=== PATIENT | female | born 1975 | race Caucasian/White ===

== ENCOUNTER 2016-08-23 14:27 | Emergency (ER) | payer OTHER ==
[~2016-08-23] VITALS: Ht 172.7 cm; Wt 113.4 kg
[~2016-08-23 14:27] MED LIST: CHEL50TA PO; DIGO0.25 PO; DOCU10CA PO; EFFE75CA75 PO; ELIQ5TAB PO; FLEC50TA PO; MAGN400C2 PO; MOTR200T44 PO; MULTCAP PO; PERC5TAB6 PO; VICODIN 7.5/500 PO; VITA500C24 PO; XANA0.5T PO; ZINCLOZ9 PO
[2016-08-23] MEDS ORDERED: ZYRT10CA PO (14:40)
[2016-08-23] MEDS ORDERED: EFFE150C PO (14:40)
[2016-08-23] MEDS ORDERED: TRAM50TA2 PO (14:40)
[2016-08-23] MEDS ORDERED: ATIV1TAB10 PO (14:40)
[2016-08-23] MEDS ORDERED: TIZA4CAP3 PO (14:40)
[2016-08-23] MEDS ORDERED: VITATAB21 PO (14:40)
[2016-08-23] MEDS ORDERED: TYLE500T78 PO (14:40)
[2016-08-23] MEDS ORDERED: MORPHINE 4 MG/ML 1ML SYRINGE IV ONE ×2 (15:00→17:15)
[2016-08-23] MEDS ORDERED: PANTOPRAZOLE 40MG INJ (PROTONIX) (C9113) IV ONE (15:00)
[2016-08-23] MEDS ORDERED: NS 1,000 ML IV ONE (15:00)
[2016-08-23 15:42] LABS: BASO % 0.5 % (0.0-1.0); EOS # 0.2 K/mm3 (0.0-0.50); EOS % 1.7 % (0.0-3.0); LARGE UNSTAINED CELL # 0.2 K/mm3 (0.0-0.4); LARGE UNSTAINED CELL % 1.7 % (0.0-4.0); LYMPH # 2.3 K/mm3 (1.5-4.5); LYMPH % 23.3 % (24.0-44.0); MEAN CORPUSCULAR HEMOGLOBIN 31.5 pg (27.0-33.0); MEAN CORPUSCULAR HGB CONC 32.9 g/dl (32.0-36.5); MEAN CORPUSCULAR VOLUME 95.8 fl (80.0-96.0); MONO # 0.6 K/mm3 (0.0-0.8); MONO % 5.6 % (0.0-5.0); NEUTROPHILS # 6.8 K/mm3 (1.8-7.7); NEUTROPHILS % 67.3 % (36.0-66.0); PLATELET COUNT, AUTOMATED 409 k/mm3 (150-450); WHITE BLOOD COUNT 10.1 K/mm3 (4.0-10.0)
[2016-08-23 16:09] LABS: ALBUMIN 3.6 GM/DL (3.2-5.2); ALBUMIN/GLOBULIN RATIO 0.95 (1.00-1.93); ALKALINE PHOSPHATASE 98 U/L (45-117); ALT/SGPT 26 U/L (12-78); AMYLASE 25 U/L (25-115); ANION GAP 5 MEQ/L (8-16); AST/SGOT 38 U/L (15-37); BILIRUBIN,DIRECT < 0.1 MG/DL (0.0-0.2); BILIRUBIN,TOTAL 0.3 MG/DL (0.2-1.0); BLOOD UREA NITROGEN 21 MG/DL (7-18); CALCIUM LEVEL 8.7 MG/DL (8.5-10.1); CARBON DIOXIDE LEVEL 28 MEQ/L (21-32); CHLORIDE LEVEL 104 MEQ/L (98-107); CREATININE FOR GFR 0.57 MG/DL (0.55-1.02); GLOMERULAR FILTRATION RATE > 60.0 (>60); GLUCOSE, FASTING 92 MG/DL (70-105); POTASSIUM SERUM 4.4 MEQ/L (3.5-5.1); SODIUM LEVEL 137 MEQ/L (136-145); TOTAL PROTEIN 7.4 GM/DL (6.4-8.2)
[2016-08-23] MEDS ORDERED: GI COCKTAIL 50ML BTL(HYOSCYAMINE/MAALOX/LIDOCAINE VISCOUS)(1:3:1) PO ONE (16:30)
--- NOTE | 2016-08-23 17:07 | REP ---
ABDOMEN FLAT UPRIGHT PA CHEST, THREE VIEWS: HISTORY: Epigastric pain. Air is present in the small and large intestine. There are no air fluid level or dilated loops of intestine. There is no pneumoperitoneum. Surgical clips are present in the right upper quadrant. The lungs are clear. IMPRESSION: Nonspecific bowel gas pattern. Signed by Romeo Stone MD 08/23/2016 05:11 P
--- NOTE | 2016-08-23 17:14 | REP ---
ABDOMINAL ULTRASOUND: REASON FOR EXAM: Epigastric and right upper quadrant pain. COMPARISON EXAMINATION: None. The patient is status-post cholecystectomy. Multiple sonographic images of the liver show diffuse increased echoes throughout the hepatic parenchyma. There is no intrahepatic or extrahepatic ductal dilatation. The common bile duct measures between 7-8 mm, dilated mildly likely secondary to the postcholecystectomy state. The maximal dimension of the liver is 20 cm. The imaged portion of the pancreas and right kidney are unremarkable. IMPRESSION: 1. There is diffuse fatty infiltration of the liver and evidence of hepatomegaly. 2. Common bile duct upper limits of normal probably secondary to the patient's postcholecystectomy state, correlate clinically. Signed by Malachi Chairez DO 08/28/2016 02:51 P
[2016-08-23] MEDS ORDERED: ISOVUE-370 76% 100ML VIAL (Q9967) As Ordered ONE (17:29)
--- NOTE | 2016-08-23 18:23 | REP ---
CT ABDOMEN AND PELVIS WITH CONTRAST: HISTORY: Abdominal pain. CONTRAST: Isovue-370 100 mL. The patient is status-post cholecystectomy. The liver, pancreas, spleen, adrenal glands and kidneys are normal in appearance. There is no mass, adenopathy or free fluid. The visualized lungs are clear. IMPRESSION: The patient is status-post cholecystectomy. CT PELVIS:The urinary bladder and uterus are normal in appearance. A 4.3 cm cyst is present in the right adnexa. There is no adenopathy or free fluid. IMPRESSION: There is a 4.2 cm right adnexal cyst. Ultrasound of the pelvis may be helpful for further evaluation. Signed by Romeo Stone MD 08/23/2016 07:16 P
[2016-08-23] MEDS ORDERED: SUCR1TA PO (18:40)
[2016-08-23] MEDS ORDERED: OMEP40CA2 PO (18:40)
[2016-08-23] MEDS ORDERED: SIME180C PO (18:40)
[2016-08-23 18:45] VITALS: BP 165/84
--- NOTE | 2016-08-25 14:25 | ED PDOC ---
Post-Departure Follow-Up dr gabrielle arias faxed formal report of ct abd/p for fu Catia Smith MD Aug 25, 2016 14:25
== END 2016-08-23 18:52 | disposition home or self-care (01) ==
LOC: M ED 15:23
DX: R10.13 Epigastric pain (principal); N83.8 Other noninflammatory disorders of ovary, fallopian tube and broad ligament; K76.9 Liver disease, unspecified; Z79.899 Other long term (current) drug therapy; Z88.8 Allergy status to other drugs, medicaments and biological substances; Z88.0 Allergy status to penicillin
CPT/HCPCS: 74022; 74177; 76705; 80048; 80076; 82150; 83690; 85025; 96374; 96375; 96376; 99283; C9113; Q9967